=== PATIENT | female | born 1960 | race African-American/Black ===

== ENCOUNTER 2022-11-12 20:29 | Emergency (ER) | payer BC ==
[~2022-11-12] VITALS: Ht 157.5 cm; Wt 90.7 kg
[2022-11-12 21:11] VITALS: BP_SYST 149
[2022-11-13 01:20] VITALS: BP_SYST 149
== END 2022-11-13 01:20 | disposition home or self-care (01) ==
LOC: SED 20:29
DX: R22.1 Localized swelling, mass and lump, neck (principal); Z79.899 Other long term (current) drug therapy
CPT/HCPCS: 70360-TC; 99283

== ENCOUNTER 2022-12-28 18:39 | Emergency (ER) | payer BC, MEDICAID ==
[~2022-12-28] VITALS: Ht 157.5 cm; Wt 95.3 kg
--- NOTE | 2022-12-28 18:45 | NUR ---
PT BIB SELF FROM HOME WITH C/O SYNCOPE THAT LEAD TO A RIGHT BLACK EYE AND LACERATION ON RIGHT EYEBROW. PT STATE AT 12:30 PM SHE WAS SITTING ON A BAR STOOL AT HOME WHEN SHE FAINTED. PT STATES WHEN SHE WOKE UP, HER SON WAS BY HER SIDE. PT STATES SHE HAS NO PAIN AT THIS TIME. HX - GALLSTONES SURGERY NEEDED. PT IS AAXO4, NAD, VSS, PT BREATHING EVEN AND UNLABORED ON RA, PT ON TIRE MAKER SHOWING NSR. SAFETY PRECAUTIONS AND COMFORT MEASURES IN PLACE. PENDING MD CARROLL AND ORDERS.
--- NOTE | 2022-12-28 18:45 | NUR ---
DR. ALVAREZ AT BEDSIDE EXAMINING THE PT.
[2022-12-28 18:51] VITALS: BP_SYST 146
--- NOTE | 2022-12-28 18:51 | NUR ---
Placed in room 6 . Placed on museum docent, blood pressure machine and pulse oximeter. To gown for exam. Side rails up. Report given to VERONICA LEE.
--- NOTE | 2022-12-28 19:19 | NUR ---
REPORT GIVEN TO LORENZO MARTIN FOR CONTINUITY OF CARE. ALL QUESTIONS AND CONCERNS ADDRESSED. ALL CARE ENDORSED.
--- NOTE | 2022-12-28 20:00 | NUR ---
EKG performed at by VERONICA Bhat. Physician given copy of EKG for review.
--- NOTE | 2022-12-28 20:12 | NUR ---
Patient given written and verbal discharge instructions and verbalizes understanding. ER MD Dr. Alexander discussed with patient the results and treatment provided. Patient in stable condition. ID arm band removed. Rx of given. Patient educated on pain management and to follow up with PMD. Pain Scale 0/10. Opportunity for questions provided and answered. Medication side effect fact sheet provided.
[2022-12-28 20:22] VITALS: BP_SYST 112
== END 2022-12-28 20:12 | disposition home or self-care (01) ==
LOC: SED 18:39
DX: S00.211A Abrasion of right eyelid and periocular area, initial encounter (principal); R55 Syncope and collapse; M54.2 Cervicalgia; F12.90 Cannabis use, unspecified, uncomplicated; Z79.899 Other long term (current) drug therapy; X58.XXXA Exposure to other specified factors, initial encounter; Y93.89 Activity, other specified; Y92.89 Other specified places as the place of occurrence of the external cause; Y99.8 Other external cause status
CPT/HCPCS: 99283